=== PATIENT | female | born 1945 | race Caucasian/White ===

== ENCOUNTER → 2018-03-27 13:40 | Outpatient (CLI) | payer MEDICARE, OTHER, SELFPAY ==
--- NOTE | 2018-03-27 13:45 | DI.RAD.S_ITS ---
PROCEDURE: XR CHEST 2V INDICATIONS: left upper lobe rale TECHNIQUE: 2 views of the chest were acquired. COMPARISON: [facility], , CHEST 2 VIEW, 05/22/2016, 12:30. FINDINGS: Surgical changes and devices: Sternotomy wires and surgical clips Lungs and pleura: No pleural effusions or pneumothorax. No acute consolidation. There is scattered subsegmental atelectasis and/or scarring. Lungs appear hyperinflated Mediastinum: Mediastinal contours are normal. Heart size is normal. Bones and chest wall: No suspicious bony abnormalities. Soft tissues appear unremarkable. IMPRESSION: No acute disease or interval change. Diffuse scarring/atelectasis. Dictated by: Travon Fonseca M.D. on 03/27/2018 at 17:04 Approved by: Travon Fonseca M.D. on 03/27/2018 at 17:05
== END ==
PROVIDERS: Family Provider Internal Medicine; PCP Internal Medicine; Visit Provider Physician Assistant
DX: R09.89 Other specified symptoms and signs involving the circulatory and respiratory systems (principal); R05 Cough; J98.4 Other disorders of lung
CPT/HCPCS: 71046

== ENCOUNTER → 2018-05-22 16:47 | Outpatient (CLI) | payer MEDICARE, OTHER, SELFPAY ==
--- NOTE | 2018-05-22 16:53 | DI.RAD.S_ITS ---
PROCEDURE: XR CHEST 2V INDICATIONS: cough TECHNIQUE: 2 views of the chest were acquired. COMPARISON: [facility], CT, PE STUDY (CTA CHEST), 07/12/2012, 23:05. [facility], CR, XR CHEST 2V, 03/27/2018, 13:37. FINDINGS: Surgical changes and devices: Sternotomy wires and surgical clips.. Lungs and pleura: No pleural effusions or pneumothorax. Lungs are hyperinflated. No acute consolidation. Scattered subsegmental atelectasis and/or scarring. Mediastinum: Mediastinal contours are grossly stable. Enlarged aortic arch as before.. Heart size is normal. Bones and chest wall: No suspicious bony abnormalities. Soft tissues appear unremarkable. IMPRESSION: No acute consolidation. Scattered subsegmental atelectasis and/or scarring. Hyperinflated lungs in keeping with chronic obstructive physiology. Dictated by: Travon Fonseca M.D. on 05/23/2018 at 10:36 Approved by: Travon Fonseca M.D. on 05/23/2018 at 10:48
== END ==
PROVIDERS: Family Provider Internal Medicine; PCP Internal Medicine; Visit Provider Internal Medicine
DX: R05 Cough (principal)
CPT/HCPCS: 71046